=== PATIENT | female | born 1985 | race Caucasian/White ===

== ENCOUNTER 2017-09-10 12:39 | Emergency (ER) | payer OTHER, SELFPAY ==
[2017-09-10 12:40] VITALS: BP 126/72; PULSE 111; RESP 22; TEMP 36.9; O2SAT 98; BMI 53.7
--- NOTE | 2017-09-10 13:34 | [facility].EDGENADL ---
ED Disposition Clinical Impression: Hyperbilirubinemia, Acute rejection of liver transplant, Hepatic encephalopathy Ascites Qualifiers: Ascites type: other type Qualified Code(s): R18.8 - Other ascites Change in mental status Qualifiers: Altered mental status type: unspecified Qualified Code(s): R41.82 - Altered mental status, unspecified Acute renal failure Qualifiers: Acute renal failure type: unspecified Qualified Code(s): N17.9 - Acute kidney failure, unspecified Disposition: Home, Self-Care Condition on Discharge: Critical Forms: Transfer Record - ED Time of Disposition: 14:38 - Critical Care Critical Care Time: No Attestation: On , the high probability of a clinically significant, sudden or life threatening deterioration of the following system(s) required my full and direct attention, intervention and personal management. The time I documented below is in addition to time spent performing reported procedures but includes the following listed in this critical care notation. Total Critical Care Time: 45 Vital system(s) involved:: Central Nervous System, Metabolic Failure, Renal Failure Medical Decision Making - Medical Records Medical records reviewed: Yes: I reviewed the patient's medical records. Vital Signs: 09/10/17 12:40 09/10/17 14:10 09/10/17 16:52 Temperature 98.4 F 98.7 F 98.5 F Temperature Source Oral Oral Oral Pulse Rate 87 Pulse Rate [Right Radial] 111 H 105 H Respiratory Rate 22 24 14 Blood Pressure 107/54 Blood Pressure [Right Arm] 126/72 151/86 Blood Pressure Mean [Right Arm] 90 107 Blood Pressure Source Automatic Cuff Blood Pressure Source [Right Arm] Automatic Cuff Automatic Cuff Blood Pressure Position Sitting Blood Pressure Position [Right Arm] Right Lateral Sitting 02 Sat by Pulse Oximetry 98 98 Oxygen Delivery Method Room Air Room Air Room Air - Lab Data Lab results reviewed: Yes: I reviewed the patient's lab results. Lab Results 09/10/17 13:12: Ammonia 122 H 09/10/17 13:20: WBC 16.0 H, RBC 4.74, Hgb 14.1, Hct 43.7, MCV 92.2, MCH 29.7, MCHC 32.1, RDW 17.7 H, Plt Count 385, MPV 8.1, Neut % (Auto) 42.0, Lymph % (Auto) 44.5, [place] % (Auto) 10.0 H, Eos % (Auto) 2.6, Baso % (Auto) 0.8, Neut # (Auto) 6.7, Lymph # (Auto) 7.1 H, [place] # (Auto) 1.6 H, Eos # (Auto) 0.4, Baso # (Auto) 0.1, Total Counted 100, Neutrophils % (Manual) 52, Lymphocytes % (Manual) 42, Monocytes % (Manual) 1 L, Eosinophils % (Manual) 5 H, Platelet Estimate Normal, Target Cells 4+, Teresa Cells 2+ 09/10/17 13:20: Sodium 136, Potassium 3.5, Chloride 106, Carbon Dioxide 17 L, Anion Gap 16.5 H, BUN 48 H, Creatinine 2.42 H, Estimated Creat Clear 31, Estimated GFR 23 L, Est GFR ( Amer) 28 L, Glucose 112 H, Calcium 9.1, Total Bilirubin 23.6 H*, AST 744 H*, ALT 202 H, Alkaline Phosphatase 907 H, Total Protein 7.0, Albumin 1.7 L, Globulin 5.3 H, Albumin/Globulin Ratio 0.3 L, Amylase 34 09/10/17 13:20: Lactic Acid 3.2 H 09/10/17 13:20: Lipase 1061 H 09/10/17 14:50: Urine Color Brown, Urine Appearance Cloudy, Urine pH 6.5, Ur Specific [place] 1.020, Urine Protein 30, Urine Glucose (UA) 100, Urine Ketones Trace, Urine Blood Negative, Urine Nitrate Positive, Urine Bilirubin 3+ A, Urine Urobilinogen 1.0, Ur Leukocyte Esterase Trace, Urine RBC 3-5, Urine WBC 10-20, Ur Squamous Epith Cells 10-20, Ur Transition Epith Cell Occ, Other Crystals 2+, Other Sediment , Urine Bacteria 3+, Hyaline Casts 3-5, Coarse Granular Casts 3-5, WBC Casts 3-5 Result diagrams: 09/10/17 13:20 09/10/17 13:20 Orders (Tests/Meds): ED MEDICATIONS Discontinued Medications Generic Name Dose Route Start Last Admin Trade Name Freq PRN Reason Stop Dose Admin Piperacillin Sod/Tazobactam 50 mls @ 100 mls/hr 09/10/17 14:35 09/10/17 15:00 Sod 2.25 gm/ Sodium Chloride IV 09/10/17 14:36 100 mls/hr ONCE ONE Administration Protocol Vancomycin HCl 2,000 mg/ 250 mls @ 125 mls/hr 09/10/17 14:45 09/10/17 16:05 Sod
--- NOTE | 2017-09-10 13:38 | CT_ITS ---
CT abdomen pelvis wo con CLINICAL INDICATION: Jaundice, prior liver transplant ITS.REASON: ABDOMEN PAIN ORDERING PHYSICIAN: Vasquez Dc MD PATIENT AGE: 31 years COMPARISON: None TECHNIQUE: Axial images obtained with sagittal and coronal reformats. PROCEDURE: Oral Contrast: None IV Contrast: None . FINDINGS: There are no previous exams available for comparison. Study is performed without IV and without oral contrast. Lung base images show bibasilar atelectasis with consolidation within the lingula and medial aspect of the right middle lobe. Is given of liver transplant. The liver has a cirrhotic appearance with an enlarged left hepatic lobe. There is diffuse ascites. Surgical clips are present about the intrahepatic portion of IVC. There is a biliary stent. Spleen is not identified presumed surgically absent. The pancreas, adrenal glands, and kidneys have an unremarkable appearance. There is mild diffuse thickening of the colon. This could be related to colitis but all may also be seen with cirrhosis and hypoproteinemia. No intestinal obstruction or free air. There is mild subcutaneous edema. Prior hysterectomy. IMPRESSION: 1. Cirrhosis. Multiple surgical clips around the IVC portion of the liver. Please correlate with surgical history 2. Diffuse ascites. 3. Diffuse thickening of the large bowel wall which may be seen with colitis but may also be seen with cirrhosis and ascites with hypoproteinemia.
[2017-09-10 13:51] LABS: Basophils # 0.1 K/mm3 (0-0.2); Basophils % 0.8 % (0.1-2.0); Eosinophils # 0.4 K/mm3 (0.0-0.4); Eosinophils % 2.6 % (0.1-12.0); Hematocrit 43.7 % (37.0-47.0); Hemoglobin 14.1 g/dL (12.2-16.2); Lymphocytes # 7.1 K/mm3 (0.7-4.5); Lymphocytes % 44.5 K/mm3 (10-50); Mean Corpuscular HGB Conc 32.1 g/dL (31.8-35.4); Mean Corpuscular Hemoglobin 29.7 pg (27.0-31.2); Mean Corpuscular Volume 92.2 fl (81-99); Mean Platelet Volume 8.1 fl (7.4-10.4); Monocytes # 1.6 K/mm3 (0.1-1.0); Neutrophils # 6.7 K/mm3 (1.8-7.8); Platelet Count 385 K/mm3 (142-424); Red Blood Count 4.74 M/mm3 (4.20-5.40); Red Cell Distribution Width 17.7 % (11.5-17.5)
[2017-09-10 14:02] LABS: Albumin Level 1.7 gm/dL (3.4-5.0); Albumin/Globulin Ratio 0.3 (1.1-1.8); Alkaline Phosphatase 907 U/L (46-116); Amylase 34 U/L (25-125); Anion Gap 16.5 mEq/L (5-15); Blood Urea Nitrogen 48 mg/dL (7-18); Calcium 9.1 mg/dL (8.5-10.1); Carbon Dioxide 17 mmol/L (21.0-32.0); Chloride 106 mmol/L (98-107); Creatinine Clearance Estimated 31 mL/min (0-300); Creatinine,Serum 2.42 mg/dL (0.55-1.02); Estimated Glomerular Filt Rate 23 ml/min (>60); GFR (African American) 28 ML/MIN (>60); Globulin 5.3 gm/dl (1.3-3.2); Sodium 136 mmol/L (136-145)
[2017-09-10 14:05] LABS: MANUAL DIFFERENTIAL MANUAL DIFFERENTIAL (MANUAL DIFF)
[2017-09-10 14:10] VITALS: BP 151/86; PULSE 105; RESP 24; TEMP 37.1; O2SAT 98
[2017-09-10 14:12] LABS: Bilirubin,Total 23.6 mg/dL (0.2-1.0)
[2017-09-10 14:13] LABS: Potassium 3.5 mmoL/L (3.5-5.1)
[2017-09-10 14:17] LABS: Lipase 1061 u/L (73-393)
[2017-09-10 14:22] LABS: Lactic Acid 3.2 mmol/L (0.4-2.0)
[2017-09-10 14:23] LABS: Reflex Lactic Add Lactic Reflex
[2017-09-10 14:26] LABS: Eosinophils % 5 % (0-3); Lymphocytes % 42 % (10-50); Monocytes % 1 % (2-9); Neutrophils % 52 % (42-76); Total Cells Counted 100
[2017-09-10 14:27] LABS: Target Cells 4+
[2017-09-10 14:30] LABS: Glucose 112 mg/dL (74-106)
[2017-09-10 14:31] LABS: Burr Cells 2+; Platelet Estimate Normal
--- NOTE | 2017-09-10 14:32 | PC.NURSE ---
DR LIN SPEAKING WITH DR AMARAL AT WITH THE LIVER TRANSPLANT TEAM
[2017-09-10 15:11] LABS: Ammonia 122 umol/L (19-54)
[2017-09-10 15:13] LABS: Microscopic, Urine URINE MICROSCOPIC (MICROSCOPIC)
[2017-09-10 15:15] LABS: Alanine Aminotransferase 202 U/L (12-78)
[2017-09-10 15:20] LABS: Appearance,Urine CLOUDY (Clear); Blood, Urine Negative (Negative); Color,Urine BROWN (Yellow); Glucose,Urine (UA) 100 (Negative); Ketones,Urine TRACE (Negative); Leukocyte Esterase,Urine TRACE (Negative); Nitrate,Urine POSITIVE (Negative); PH,Urine 6.5 (5.0-8.5); Protein,Urine 30 (Negative)
[2017-09-10 15:25] LABS: Aspartate Amino Transferase 744 U/L (15-37)
[2017-09-10 15:44] LABS: Bilirubin,Urine 3+ (Negative)
[2017-09-10 16:08] LABS: Bacteria,Urine 3+ /lpf; Other Crystals,Urine 2+ /lpf; Transitional Epi Cells,Urine OCC #/lpf (0-3)
--- NOTE | 2017-09-10 16:12 | PC.NURSE ---
report given to isaias at er.
[2017-09-10 16:52] VITALS: BP 107/54; PULSE 87; RESP 14; TEMP 36.9; O2SAT 98
== END 2017-09-10 16:52 | disposition home or self-care (01) ==
PROVIDERS: Emergency Provider Emergency Medicine; Family Provider Family Medicine
DX: R18.8 Other ascites (principal); K72.90 Hepatic failure, unspecified without coma; E80.6 Other disorders of bilirubin metabolism; T86.41 Liver transplant rejection; N17.9 Acute kidney failure, unspecified; Z88.6 Allergy status to analgesic agent; Z88.8 Allergy status to other drugs, medicaments and biological substances; Z87.891 Personal history of nicotine dependence
CPT/HCPCS: 74176; 80053; 81001; 82140; 82150; 83605; 83690; 85007; 85025; 87040; 87086; 96365; 96375; 99282; 99284; J2543; J3370